=== PATIENT | female | born 1945 | race Caucasian/White ===

== ENCOUNTER → 2017-10-19 11:27 | Outpatient (CLI) | payer MEDICARE, BC, SELFPAY ==
[2017-10-19 13:14] LABS: TSH (W/Ref FT4) 3.16 uIU/mL (0.358-3.74)
== END ==
DX: E03.9 Hypothyroidism, unspecified (principal)
CPT/HCPCS: 36415; 84443

== ENCOUNTER 2018-01-25 11:24 | Outpatient (CLI) | payer MEDICARE, BC, SELFPAY ==
[2018-01-25 13:24] LABS: TSH (W/Ref FT4) 2.11 uIU/mL (0.358-3.74)
== END 2018-01-25 11:44 ==
DX: R00.2 Palpitations (principal); R53.83 Other fatigue
CPT/HCPCS: 36415; 84443

== ENCOUNTER 2018-06-28 00:47 | Outpatient (CLI) | payer MEDICARE, BC, SELFPAY ==
--- NOTE | 2018-06-28 08:55 | DI.MAMMO_ITS ---
SYMPTOM/DIAGNOSIS: SCREENING, Z12.31 MAMMOGRAMS: Mammograms were interpreted according to the usual protocol including computer analysis with CAD system, tomosynthesis and C view imaging. The breasts are heterogeneously dense. No dominant mass or clumped microcalcification is identified in either breast. The current examination is compared with previous examinations including 06/2017 and there has been no gross interval change in appearance in comparison with the previous studies. CONCLUSION: No specific evidence of malignancy at this time. Routine screening examinations are suggested at yearly intervals due to the family history of breast carcinoma. Category 1. Breast density, Category C. MQSA ASSESSMENT OF FINDINGS: Negative. Category 1. Patient will receive a letter notifying them of these results. Bi-RADS category C. The breasts are heterogeneously dense, which may obscure small masses.
== END 2018-06-28 01:07 ==
DX: Z12.31 Encounter for screening mammogram for malignant neoplasm of breast (principal); Z80.3 Family history of malignant neoplasm of breast
CPT/HCPCS: 77063; 77067

== ENCOUNTER 2018-08-31 07:46 | Outpatient (CLI) | payer MEDICARE, BC, SELFPAY ==
[2018-08-31 11:29] LABS: ALT 22 U/L (12-78); AST 16 U/L (15-37); Albumin 3.5 g/dL (3.4-5.0); Alkaline Phosphatase 60 U/L (46-116); Anion Gap 9.5 mmol/L (3-11); BUN 20 mg/dL (7-18); Bilirubin, Total 0.3 mg/dL (0.2-1.0); CO2 28.5 mmol/L (21.0-32.0); CREATININE 0.69 mg/dL (0.55-1.02); Calcium 8.5 mg/dL (8.5-10.1); Calculated LDL 162 mg/dL; Chloride 103 mmol/L (98-107); Cholesterol 247 mg/dL (50-200); Glucose 89 mg/dL (70-100); HDL Cholesterol 77 mg/dL (40-60); Potassium 4.4 mmol/L (3.5-5.1); Sodium 141 mmol/L (136-145); TSH (W/Ref FT4) 2.03 uIU/mL (0.358-3.74); Total Protein 6.3 g/dL (6.4-8.2); Triglyceride 42 mg/dL (30-150)
== END 2018-08-31 08:06 ==
DX: E03.9 Hypothyroidism, unspecified (principal); F32.9 Major depressive disorder, single episode, unspecified; F41.9 Anxiety disorder, unspecified; I10 Essential (primary) hypertension; M25.50 Pain in unspecified joint
CPT/HCPCS: 36415; 80053; 80061; 83721; 84443

== ENCOUNTER 2019-08-14 03:52 | Outpatient (CLI) | payer MEDICARE, BC, SELFPAY ==
[2019-08-14 10:26] LABS: ALT 25 U/L (14-59); AST 16 U/L (15-37); Albumin 4.1 g/dL (3.4-5.0); Alkaline Phosphatase 56 U/L (46-116); Anion Gap 4.8 mmol/L (3-11); BUN 19 mg/dL (7-18); Bilirubin, Total 0.3 mg/dL (0.2-1.0); CO2 32.2 mmol/L (21.0-32.0); CREATININE 0.84 mg/dL (0.55-1.02); Calcium 8.9 mg/dL (8.5-10.1); Chloride 101 mmol/L (98-107); Glucose 88 mg/dL (74-106); Potassium 4.8 mmol/L (3.5-5.1); Sodium 138 mmol/L (136-145); TSH (W/Ref FT4) 4.05 uIU/mL (0.36-3.74); Total Protein 6.8 g/dL (6.4-8.2)
[2019-08-14 10:50] LABS: FREE T4 0.93 ng/dL (0.76-1.46)
[2019-08-14 12:00] LABS: Calculated LDL 178 mg/dL (<100); Cholesterol 279 mg/dL (<200); HDL Cholesterol 90 mg/dL (40-60); Triglyceride 59 mg/dL (<150)
== END 2019-08-14 04:12 ==
DX: I10 Essential (primary) hypertension (principal); E03.9 Hypothyroidism, unspecified; F32.9 Major depressive disorder, single episode, unspecified; F41.9 Anxiety disorder, unspecified
CPT/HCPCS: 36415; 80053; 80061; 84439; 84443

== ENCOUNTER 2019-12-03 01:27 | Outpatient (CLI) | payer MEDICARE, BC, SELFPAY ==
[2019-12-03 13:42] LABS: TSH (W/Ref FT4) 2.15 uIU/mL (0.36-3.74)
== END 2019-12-03 01:47 ==
DX: E03.9 Hypothyroidism, unspecified (principal)
CPT/HCPCS: 36415; 84443

== ENCOUNTER 2020-06-23 03:31 | Outpatient (CLI) | payer MEDICARE, BC, SELFPAY ==
--- NOTE | 2020-06-23 08:20 | DI.MAMMO_ITS ---
EXAM: MG MAMMO SCREENING CLINICAL HISTORY: screening,Z12.39 TECHNIQUE: Bilateral full field digital CC and MLO mammographic images were obtained with 3D tomosyn thesis and utilizing computer aided detection (CAD). COMPARISON: Available for comparison. FINDINGS: Masses/Architectural Distortion: None seen. Microcalcifications: No suspicious pleomorphic-type are seen. Skin Thickening/Nipple Retraction: None. IMPRESSION: 1. No significant interval change with no specific features of malignancy noted. 2. Unless there is more urgent need, screening mammography is recommended, as per [employer] guidelines. BI-RADS Category 1 - Negative Breast Density - Category C - Heterogeneously dense Breast density category C or D implies that the patient has dense breast tissue. Dense breast tissue is very common and is not abnormal but dense breast tissue can make it harder to find cancer on a ma mmogram. Also, dense breast tissue may increase their breast cancer risk. This information about the result of the mammogram report was provided to the patient to raise their awareness. Use this report when you speak with the patient about their risks for breast cancer, which includes their family hist ory. At that time, you may recommend for more screening tests (Ultrasound or MRI) as they might be us eful based on their risk. A negative radiographic report should not delay biopsy if a dominant or clinically suspicious mass is present. Up to ten percent of cancers are not identified on mammography. A negative report may reinforce clinical impression. Adenosis and dense breasts may obscure an underlying neoplasm. False positive reports average 6 to 10%. Patient will receive a letter notifying them of these results.
[2020-06-23 09:18] LABS: Calculated LDL 165 mg/dL (<100); Cholesterol 270 mg/dL (<200); HDL Cholesterol 91 mg/dL (40-60); TSH 4.38 uIU/mL (0.36-3.74); Triglyceride 74 mg/dL (<150)
[2020-06-23 09:40] LABS: FREE T4 0.98 ng/dL (0.76-1.46)
== END 2020-06-23 03:32 | disposition home or self-care (01) ==
PROVIDERS: Visit Provider Physician Assistant
DX: Z12.31 Encounter for screening mammogram for malignant neoplasm of breast (principal); I10 Essential (primary) hypertension; F41.9 Anxiety disorder, unspecified; F32.9 Major depressive disorder, single episode, unspecified
CPT/HCPCS: 36415; 77063; 77067; 80061; 84439; 84443

== ENCOUNTER 2020-12-02 02:57 | Outpatient (CLI) | payer MEDICARE, BC, SELFPAY ==
[2020-12-02 11:37] LABS: TSH (W/Ref FT4) 2.15 uIU/mL (0.36-3.74)
== END 2020-12-02 02:58 | disposition home or self-care (01) ==
LOC: LBO 02:57
DX: E03.9 Hypothyroidism, unspecified; G47.00 Insomnia, unspecified
CPT/HCPCS: 36415; 84443

== ENCOUNTER 2020-12-08 01:21 | Outpatient (CLI) | payer MEDICARE, BC, SELFPAY ==
--- NOTE | 2020-12-08 07:30 | DI.RAD_ITS ---
Exam(s) XR HIP PELVIS ADULT BL EXAM: XR HIP PELVIS ADULT BL CLINICAL HISTORY: osteoarthritis with groin pain, not improv. w/ PT,r10.31,r10.32. TECHNIQUE: 2D digital imaging was performed. COMPARISON: No exams were available for comparison FINDINGS: No evidence of pelvic nor hip fractures. No degenerative changes evident in the hips and sacroiliac joints nor in the symphysis pubis. Bone density is normal. No osseous lesions. No evidence of oste onecrosis. IMPRESSION: No significant radiographic findings in the bones of the pelvis and hips. No obvious degenerative ch anges in either hip. DATA REPOSITORY: RADIATION DOSE DELIVERED:
== END 2020-12-08 01:41 ==
DX: R10.31 Right lower quadrant pain (principal); R10.32 Left lower quadrant pain
CPT/HCPCS: 73521

== ENCOUNTER 2021-07-01 03:55 | Outpatient (CLI) | payer MEDICARE, BC, SELFPAY ==
[2021-07-01 12:51] LABS: ALT 24 U/L (14-59); AST 16 U/L (15-37); Albumin 4.1 g/dL (3.4-5.0); Alkaline Phosphatase 57 U/L (46-116); Anion Gap 6.6 mmol/L (3-11); BUN 18 mg/dL (7-18); Bilirubin, Total 0.4 mg/dL (0.2-1.0); CO2 30.4 mmol/L (21.0-32.0); CREATININE 0.8 mg/dL (0.55-1.02); Calcium 8.8 mg/dL (8.5-10.1); Calculated LDL 179 mg/dL (<100); Chloride 99 mmol/L (98-107); Cholesterol 279 mg/dL (<200); Glucose 85 mg/dL (74-106); HDL Cholesterol 86 mg/dL (40-60); Sodium 136 mmol/L (136-145); TSH (W/Ref FT4) 3.29 uIU/mL (0.36-3.74); Total Protein 6.6 g/dL (6.4-8.2); Triglyceride 70 mg/dL (<150)
== END 2021-07-01 03:56 | disposition home or self-care (01) ==
LOC: LOS 03:56
DX: I10 Essential (primary) hypertension (principal); E03.9 Hypothyroidism, unspecified; E78.5 Hyperlipidemia, unspecified
CPT/HCPCS: 36415; 80053; 80061; 84443

== ENCOUNTER 2022-06-13 01:06 | Outpatient (CLI) | payer MEDICARE, BC, SELFPAY ==
--- NOTE | 2022-06-13 06:45 | DI.RAD_ITS ---
Exam(s) XR CERVICAL SPINE COMP 4-5V EXAM: XR CERVICAL SPINE COMP 4-5V CLINICAL HISTORY: persistent pain with PT,RT NECK PAIN,M54.2. TECHNIQUE: 2D digital imaging was performed. COMPARISON: No exams were available for comparison FINDINGS: Five views: No evidence of acute fracture, listhesis, nor offset of the spinal laminar line. There is some disc space narrowing at C5-6 as well as some facet arthropathy at this level. Also some facet joint degen erative changes higher up in the cervical spine. On the oblique views there are no prominent Luschka joint osteophytes. There are no cervical ribs. No osseous lesions evident. IMPRESSION: Evidence of degenerative disc disease C5-6 level. DATA REPOSITORY: RADIATION DOSE DELIVERED:
== END 2022-06-13 01:26 ==
PROVIDERS: PCP Nurse Practitioner Family; Visit Provider Nurse Practitioner Family
DX: M54.2 Cervicalgia (principal)
CPT/HCPCS: 72050

== ENCOUNTER 2022-06-13 02:23 | Outpatient (CLI) | payer MEDICARE, BC, SELFPAY ==
[2022-06-13 09:04] LABS: ALT 26 U/L (14-59); AST 16 U/L (15-37); Albumin 3.7 g/dL (3.4-5.0); Alkaline Phosphatase 58 U/L (46-116); Anion Gap 4.9 mmol/L (3-11); BUN 22 mg/dL (7-18); Bilirubin, Total 0.3 mg/dL (0.2-1.0); CO2 31.1 mmol/L (21.0-32.0); CREATININE 0.8 mg/dL (0.55-1.02); Calcium 8.9 mg/dL (8.5-10.1); Calculated LDL 173 mg/dL (<100); Chloride 101 mmol/L (98-107); Cholesterol 265 mg/dL (<200); Estimated GFR 77.27 (mL/min/1.73m2); Glucose 92 mg/dL (74-106); HDL Cholesterol 85 mg/dL (40-60); Potassium 4.4 mmol/L (3.5-5.1); Sodium 137 mmol/L (136-145); TSH (W/Ref FT4) 2.39 uIU/mL (0.36-3.74); Triglyceride 39 mg/dL (<150)
== END 2022-06-13 02:24 | disposition home or self-care (01) ==
LOC: LBO 02:23
PROVIDERS: PCP Nurse Practitioner Family; Visit Provider Nurse Practitioner Family
DX: E03.9 Hypothyroidism, unspecified (principal); E78.5 Hyperlipidemia, unspecified
CPT/HCPCS: 36415; 80053; 80061; 72050; 84443

== ENCOUNTER 2022-07-01 19:11 | Emergency (ER) | payer MEDICARE, BC, SELFPAY ==
--- NOTE | 2022-07-01 19:00 | RT.EKG_ITS ---
APPROVED REPORT Exam: Resting ECG Reason for Exam: dizziness Patient Location: E HR:67 bpm ECG Measurements Heart Rate 67 AXIS WV 164 P 80 QRSd 89 QRS 75 QT 399 T 20 QTc 398 Conclusion Sinus rhythm...normal P axis, V-rate 60- 99 Atrial premature complexes in couplets...pair SV complexes w/ short R-R Probable left atrial enlargement...P >50mS, <-0.10mV V1 Minimal ST depression, diffuse leads...ST <-0.03mV, ant/lat/inf I have reviewed and interpreted ECG and agree with software generated interpretation.
[2022-07-01 19:17] VITALS: BP 208/93; PULSE 72; RESP 16; TEMP 36.6; O2SAT 98
--- NOTE | 2022-07-01 19:30 | DI.CT_ITS ---
Exam(s) CT HEAD WO EXAM: CT HEAD WO CLINICAL HISTORY: Dizziness. TECHNIQUE: Imaging Protocol: Axial computed tomography images with coronal and sagittal reformatted images were created and reviewed COMPARISON: No exams were available for comparison FINDINGS: There are no skull fractures. There is no fluid in the visualized paranasal sinuses. There is no evidence of intracranial hemorrhage, mass effect, or shift of midline structures. There are no extra-axial fluid collections. The ventricles are not enlarged or shifted and there is no blo od within the ventricular system nor within the basal cisterns. IMPRESSION: No acute intracranial findings on this noninfused CT scan of the brain. RADIATION DOSE DELIVERED: 658.02mGy.cm Total DLP DATA REPOSITORY: All CT scans at this facility are submitted to the National Radiology Data Registry (NRDR) Dose Index Registry (DIR) with the [employer] (ACR). RADIATION OPTIMIZATION: All CT scans at this facility use at least one of these dose optimization te chniques: automated exposure control; mA and/or kV adjustment per patient size (includes targeted exa ms where dose is matched to clinical indication); or iterative reconstruction.
--- NOTE | 2022-07-01 19:47 | ED.GENADUL_ITS ---
Discharge Plan Disposition Patient Disposition: Home Condition: Stable Discharge Details Clinical Impression: Hypertension, Dizziness Primary Care Provider: Manohar Sy ED Provider: Paultete Ritter Home Meds and New Rx's Prescriptions: New lisinopril 10 mg tablet 10 mg PO DAILY Qty: 30 0RF Rx Instructions: Take one tablet by mouth daily. meclizine 25 mg tablet 25 mg PO DAILY PRN (Reason: dizziness) Qty: 10 0RF Rx Instructions: Take 1 tablet daily as needed for dizziness No Action naproxen sodium [Aleve] 220 mg capsule 220 mg PO BID PRN magnesium 250 mg tablet 250 mg PO DAILY rosuvastatin 5 mg tablet 5 mg PO DAILY Qty: 90 0RF triamcinolone acetonide 0.025 % cream 1 applic Topical DAILY PRN (Reason: dermatitis) Qty: 15 1RF Rx Instructions: Apply to lesion on face daily, thin layer. Discontinue after 2 weeks of use. cholecalciferol (vitamin D3) 1,000 UNIT tablet 1,000 unit PO DAILY calcium carbonate [Calcium 500] 500 MG tablet 500 mg PO DAILY lorazepam 0.5 mg tablet 0.5 mg PO DAILY PRN (Reason: anxiety) Qty: 10 0RF levothyroxine 25 mcg tablet 12.5 mcg PO DAILY Qty: 45 2RF Rx Instructions: Take 12.5mg (1/2 tab) every other day for a total of 62.5mg/day levothyroxine 50 mcg tablet 50 mcg PO DAILY Qty: 90 3RF sertraline 100 mg tablet 100 mg PO DAILY Qty: 90 3RF Discharge Instructions Instructions: Hypertension (ED), Dizziness (ED) Additional Instructions: At this time cardiac work-up is within normal limits, your blood pressure has remained high throughout your stay. No evidence of heart problems. CT of your head is within normal limits and chest x-ray within normal limits as well. Please take the lisinopril blood pressure medication daily as directed. Continue to monitor your blood pressure. Take the meclizine dizziness medication as needed. Follow up with primary care provider in 3-5 days. Return to ED sooner if any worsening or concerns. Increase oral fluids. Referrals: Manohar Sy, V[employer]ATIONAL ED INSTRUCTOR [Primary Care Provider] - 3 days Medical Decision Making 76-year-old female presents to the ER with a chief complaint of dizziness and hypertension. Patient was seen by her PCP recently and noted to have high blood pressure she requested to wait on starting medication. She was also recently placed on rosuvastatin on Monday. She also reports loose stools for the last 3 days. She describes bending over with increased dizziness and lightheadedness. Denies any chest pain shortness of breath or headache. She does get dizzy upon standing. Past medical history includes vertigo, back pain and arthralgia. She is alert and oriented x4 no focal neurodeficits noted on exam. EKG, CBC CMP, troponin TSH chest pain chest x-ray and head CT ordered. I did discuss possible blood pressure medications with patient who states she is not everted to starting them if needed. CBC shows no leukocytosis, CMP shows sodium 134, BUN 21 creatinine 0.7 glucose 111 TSH is elevated at 6.13, urinalysis is within normal limits. On patient reevaluation she reports that upon transferring from the stretcher to CT she did get dizzy and felt off balance. Order meclizine p.o. and lisinopril 10 mg. Patient received a liter of normal saline, blood pressure improved 147/61 prior to discharge. This text was generated using [employer] dictation system, please disregard any oddities of phrase or misspellings. Lab Data Lab results reviewed: Yes I reviewed the patient's lab results. Labs: Laboratory Tests Range/Units 07/01/22 07/01/22 07/01/22 19:55 19:55 19:55 WBC (4.4-10.8) 10^3/uL 6.22 RBC (3.93-5.22) 10^6/uL 4.20 Hgb (11.2-15.7) g/dL 13.2 Hct (36.0-46.0) % 39.0 MCV (80-95) fL 93 MCH (27.0-33.0) pg 31.4 MCHC (32.0-36.0) % 33.8 RDW (11.7-14.6) % 12.7 Plt Count (130-400) 10^3/uL 223 MPV (8.0-11.0) fL 10.5 Immature Gran % 0.2 Neutrophils % 64.0 Lymphocytes % 21.5 Monocytes % 10.9 Eosinophils % 2.6 Basophils % 0.8 Nucleated RBC % (0.0-0.3) % 0.0 Absolute Neutrophils (1.2-6.7) 10^3/uL 3.98 Absolute Lymphocytes (1.2-3.4) 10^3/uL 1.34 Absolute Monocytes (0.1-0.8) 10^3/uL 0.68 Absolute Eosinophils (0.0-0.7) 10^3/uL 0.16 Absolute Basophils (0.0-0.2) 10^3/uL 0.05 Sodium (136-145) mmol/L 134 L Potassium (3.5-5.1) mmol/L 4.4 Chloride (98-107) mmol/L 99 Carbon Dioxide (21.0-32.0) mmol/L 29.6 Anion Gap (3-11) mmol/L 5.4 BUN (7-18) mg/dL 21 H Creatinine (0.55-1.02) mg/dL 0.7 Est GFR (CKD-EPI 2020) (mL/min/1.73m2) 90.70 Glucose (74-106) mg/dL 111 H Calcium (8.5-10.1) mg/dL 9.4 Magnesium (1.8-2.4) mg/dL 1.9 Total Bilirubin (0.2-1.0) mg/dL 0.3 AST (15-37) U/L 18 ALT (14-59) U/L 30 Alkaline Phosphatase (46-116) U/L 69 Troponin I (<or=60) ng/L < 50 Total Protein (6.4-8.2) g/dL 7.5 Albumin (3.4-5.0) g/dL 4.1 TSH (0.36-3.74) uIU/mL 6.13 H Thyroxine (T4) (4.7-13.3) ug/dL 7.5 Urine Color (Yellow) Urine Clarity (Clear) Urine pH (5-8) Ur Specific [place] (1.005-1.025) Urine Protein (Negative) mg/dL Urine Ketones (Negative) mg/dL Urine Blood (Negative) Urine Nitrite (Negative) Urine Bilirubin (Negative) Urine Urobilinogen (Up to 0.2) mg/dL Ur Leukocyte Esterase (Negative) Urine Glucose (Negative) mg/dL Range/Units 07/01/22 20:00 WBC (4.4-10.8) 10^3/uL RBC (3.93-5.22) 10^6/uL Hgb (11.2-15.7) g/dL Hct (36.0-46.0) % MCV (80-95) fL MCH (27.0-33.0) pg MCHC (32.0-36.0) % RDW (11.7-14.6) % Plt Count (130-400) 10^3/uL MPV (8.0-11.0) fL Immature Gran % Neutrophils % Lymphocytes % Monocytes % Eosinophils % Basophils % Nucleated RBC % (0.0-0.3) % Absolute Neutrophils (1.2-6.7) 10^3/uL Absolute Lymphocytes (1.2-3.4) 10^3/uL Absolute Monocytes (0.1-0.8) 10^3/uL Absolute Eosinophils (0.0-0.7) 10^3/uL Absolute Basophils (0.0-0.2) 10^3/uL Sodium (136-145) mmol/L Potassium (3.5-5.1) mmol/L Chloride (98-107) mmol/L Carbon Dioxide (21.0-32.0) mmol/L Anion Gap (3-11) mmol/L BUN (7-18) mg/dL Creatinine (0.55-1.02) mg/dL Est GFR (CKD-EPI 2020) (mL/min/1.73m2) Glucose (74-106) mg/dL Calcium (8.5-10.1) mg/dL Magnesium (1.8-2.4) mg/dL Total Bilirubin (0.2-1.0) mg/dL AST (15-37) U/L ALT (14-59) U/L Alkaline Phosphatase (46-116) U/L Troponin I (<or=60) ng/L Total Protein (6.4-8.2) g/dL Albumin (3.4-5.0) g/dL TSH (0.36-3.74) uIU/mL Thyroxine (T4) (4.7-13.3) ug/dL Urine Color (Yellow) Yellow Urine Clarity (Clear) Clear Urine pH (5-8) 7.0 Ur Specific [place] (1.005-1.025) 1.015 Urine Protein (Negative) mg/dL Negative Urine Ketones (Negative) mg/dL Negative Urine Blood (Negative) Negative Urine Nitrite (Negative) Negative Urine Bilirubin (Negative) Negative Urine Urobilinogen (Up to 0.2) mg/dL 0.2 Ur Leukocyte Esterase (Negative) Negative Urine Glucose (Negative) mg/dL Negative HPI General Mode of arrival: ambulatory . Date/Time Provider Initiated Documentation: 07/01/22 19:31 . Limitations to Documentation: no limitations . Information obtained by: patient, RN notes reviewed and old records reviewed . HPI Narrative: 76-year-old female presents to the ER with a chief complaint of dizziness and hypertension. Patient was seen by her PCP recently and noted to have high blood pressure she requested to wait on starting medication. She was also recently placed on rosuvastatin on Monday. She also reports loose stools for the last 3 days. She describes bending over with increased dizziness and lightheadedness. Denies any chest pain shortness of breath or headache. She does get dizzy upon standing. Past medical history includes vertigo, back pain and arthralgia. She is alert and oriented x4 no focal neurodeficits noted on exam. She is hypertensive with a blood pressure of 195/96. Past medical history includes hypothyroidism anxiety depression, hyperlipidemia and GERD Related Data Home Medications Medication Instructions Recorded Confirmed cholecalciferol (vitamin D3) 25 1,000 unit PO DAILY 11/02/12 07/01/22 mcg (1,000 unit) tablet calcium carbonate 500 mg calcium 500 mg PO DAILY 08/19/15 07/01/22 (1,250 mg) tablet (Calcium 500) triamcinolone acetonide 0.025 % 1 applic topical DAILY PRN 10/05/20 07/01/22 topical cream dermatitis #15 grams lorazepam 0.5 mg tablet 0.5 mg PO DAILY PRN anxiety #10 11/20/20 07/01/22 tabs magnesium 250 mg tablet 250 mg PO DAILY 07/10/21 07/01/22 naproxen sodium 220 mg capsule 220 mg PO BID PRN 07/10/21 07/01/22 (Aleve) levothyroxine 25 mcg tablet 12.5 mcg PO DAILY hypothyroidism 01/05/22 07/01/22 #45 tabs levothyroxine 50 mcg tablet 50 mcg PO DAILY #90 tab-caps 02/23/22 07/01/22 sertraline 100 mg tablet 100 mg PO DAILY #90 tab-caps 02/23/22 07/01/22 rosuvastatin 5 mg tablet 5 mg PO DAILY #90 tabs 06/27/22 07/01/22 lisinopril 10 mg tablet 10 mg PO DAILY #30 tabs 07/01/22 meclizine 25 mg tablet 25 mg PO DAILY PRN dizziness #10 07/01/22 tabs Previous Rx's Medication Instructions Recorded triamcinolone acetonide 0.025 % 1 applic topical DAILY PRN 10/05/20 topical cream dermatitis #15 grams lorazepam 0.5 mg tablet 0.5 mg PO DAILY PRN anxiety #10 11/20/20 tabs levothyroxine 25 mcg tablet 12.5 mcg PO DAILY hypothyroidism 01/05/22 #45 tabs levothyroxine 50 mcg tablet 50 mcg PO DAILY #90 tab-caps 02/23/22 sertraline 100 mg tablet 100 mg PO DAILY #90 tab-caps 02/23/22 rosuvastatin 5 mg tablet 5 mg PO DAILY #90 tabs 06/27/22 lisinopril 10 mg tablet 10 mg PO DAILY #30 tabs 07/01/22 meclizine 25 mg tablet 25 mg PO DAILY PRN dizziness #10 07/01/22 tabs Allergies Allergy/AdvReac Type Severity Reaction Status Date / Time nickel Allergy Severe RASH Verified 07/01/22 19:23 alendronate sodium AdvReac Mild epigastric Verified 07/01/22 19:23 [From Fosamax] pain General Stated Complaint: Dizzy/Sync DENAE: 3 Review of Systems All systems reviewed & are unremarkable except as noted in HPI and below ENT Ears, Nose, Mouth, and Throat: Reports dizziness Cardiovascular Cardiovascular: Denies chest pain, Reports lightheadedness, Denies dyspnea, Denies dyspnea on exertion, Denies orthopnea and Reports other (Hypertension) Respiratory Respiratory: Denies dyspnea and Denies dyspnea on exertion Gastrointestinal Gastrointestinal: Denies abdominal pain, Reports loose stools, Denies nausea and Denies vomiting Neurologic Neurologic: Reports as per HPI and Reports dizziness PFSH All Active Problems (Updated 07/01/22 @ 21:51 by Paulette Ritter NP) Hypertension (Chronic) Dizziness (Acute) Skin lesion (Acute) Neck pain on right side (Acute) GERD without esophagitis (Chronic) Hyperlipidemia (Chronic) ACC/AHA Risk Christopher.on 2020 Lipids = 17.4% Advanced directives, counseling/discussion (Acute) Insomnia, unspecified (Chronic 07/07/15) Seasonal allergies (Chronic 10/19/17) Rosacea (Chronic) Palpitations (Chronic 02/23/15) Osteoporosis (Chronic) 2009 [facility] [place] [facility] T- 3.2, 02/08 DEXA stable at T -3.1 2017 [facility] Spine=T -2.2 (no chg.), Hip= T -2.8 (slight improvement) NOT on alendronate Hypothyroidism (Chronic 11/02/12) Anxiety and depression (Chronic 06/17/14) Medical History Arthralgia of temporomandibular joint, unspecified side (06/01/16) bilateral thumbs and feet Back pain with left-sided radiculopathy (12/22/16) Balance problem (10/19/17) COVID-19 (~11/26/21) Family hx-breast malignancy mother Knee pain, bilateral (04/24/14) Left groin pain 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 No problems noted. Grandfather Diabetes Heart disease Stroke Grandmother Essential hypertension Heart disease Stroke Grandmother Essential hypertension Stroke FAMILY HISTORY Osteoporosis Peripheral vascular disease Son Essential hypertension Daughter No problems noted. Other Family hx-breast malignancy Social History Smoking/Tobacco Use Status: Never Smoking risk assessment performed?: Yes Alcohol Intake: current Alcohol Intake frequency: holidays/special occasions only Drug use: Never Substance use type: does not use Caregiver/Support person: No Household members: spouse Communication Needs: None Pets and animals: No Sexually active: Yes What is your relationship status?: How often do you talk on the phone with friends or family?: three or more times per week How often do you get together with friends or relatives?: three or more times per week How often do you attend methodist or alevism services?: 4 or more times per year Do you belong to any clubs or organized social groups?: yes Panel score (0-1 are the most socially isolated patients): 4 What type of physical activity do you participate in: walking, other Details: Dance and decline to answer Duration: 60-90 minutes/day Frequency: 5-6 times per week Allyson/Gnosticism: Restoration Special allyson needs: No Seatbelt use: always Drive intox 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 Appears stated age. Normal body habitus. Head: Normocephalic, no trauma. Eyes: Pupils PERRL, Red reflex noted, EOM's intact. Eyelids symmetrical without lesions, discharge, or swelling. ENT: Bilateral TM's WNL, External ear normal to inspection, no mastoid TTP, swelling, or erythema, Nasal turbinates WNL, no nasal discharge. Normal dentition, Posterior pharynx WNL, no exudate. Chest: RRR, Normal S1, S2, distal pulses intact. Resp: Lungs clear to auscultation bilaterally, no wheezes, rales, or rhonchi. Abdomen: Soft, non-distended, Normoactive bowel sounds all 4 quads. Musculoskeletal: Normal gait, 5/5 strength to all four extremities. Skin: No suspicious rashes or lesions. Capillary refill less than 2 sec. Neurologic: Cranial nerves II-XII intact. Alert and oriented x 3. Motor: No deficits noted. Sensory: Intact bilaterally all 4 extremities. Reflexes: DTR's intact bilaterally.. Hematologic/Lymphatic: No ecchymosis, no lymphadenopathy. Course Vital Signs Vital signs: Vital Signs Temperature 36.6 C 07/01/22 19:17 Pulse 72 07/01/22 19:17 Respiratory Rate 16 07/01/22 19:17 Blood Pressure 208/93 H 07/01/22 19:17 Pulse Oximetry 98 07/01/22 19:17 Temperature 36.6 C 07/01/22 19:17 Temperature Source Oral 07/01/22 19:17 Pulse 72 07/01/22 19:17 Respiratory Rate 16 07/01/22 19:17 Respiratory Effort Normal 07/01/22 19:17 Blood Pressure 208/93 H 07/01/22 19:17 Blood Pressure Position Sitting 07/01/22 19:17 Pulse Oximetry 98 07/01/22 19:17 Oxygen Delivery Method Room Air 07/01/22 19:17 Oxygen Flow Rate 0 07/01/22 19:17 Pain Level 0 07/01/22 19:17
--- NOTE | 2022-07-01 19:47 | DI.RAD_ITS ---
Exam(s) XR CHEST 2V PA LATERAL EXAM: XR CHEST 2V PA LATERAL CLINICAL HISTORY: Dizziness, Hypertension. TECHNIQUE: 2D digital imaging was performed. COMPARISON: No exams were available for comparison FINDINGS: 2 views: Heart size is normal. The mediastinum is not widened. Hyperinflation but no infiltrates nor pleural effusions. No pneumothorax. No pulmonary edema. IMPRESSION: No acute pulmonary findings.Hyperinflation noted. DATA REPOSITORY: RADIATION DOSE DELIVERED:
[2022-07-01 20:02] LABS: Abs Immature Grans 0.01 10^3/uL (0.0-0.06); Absolute Basophil Count 0.05 10^3/uL (0.0-0.2); Absolute Eosinophil Count 0.16 10^3/uL (0.0-0.7); Absolute Lymphocyte Count 1.34 10^3/uL (1.2-3.4); Absolute Monocyte Count 0.68 10^3/uL (0.1-0.8); Absolute Neutrophil Count 3.98 10^3/uL (1.2-6.7); Basophils % 0.8; Eosinophils % 2.6; HGB 13.2 g/dL (11.2-15.7); Immature Grans % 0.2; Lymphocytes % 21.5; MCH 31.4 pg (27.0-33.0); MCHC 33.8 % (32.0-36.0); MCV 93 fL (80-95); MPV 10.5 fL (8.0-11.0); Monocytes % 10.9; Platelet Count 223 10^3/uL (130-400); RDW 12.7 % (11.7-14.6); RDW-SD 43.2 fL; WBC 6.22 10^3/uL (4.4-10.8)
[2022-07-01 20:25] LABS: Bilirubin Negative (Negative); Blood Negative (Negative); Clarity Clear (Clear); Glucose Negative (Negative); Ketones Negative (Negative); Leukocyte Esterase Negative (Negative); Nitrite Negative (Negative); Specific Gravity 1.015 (1.005-1.025); Urobilinogen 0.2 mg/dL (Up to 0.2)
[2022-07-01 20:29] LABS: ALT 30 U/L (14-59); AST 18 U/L (15-37); Albumin 4.1 g/dL (3.4-5.0); Alkaline Phosphatase 69 U/L (46-116); Anion Gap 5.4 mmol/L (3-11); BUN 21 mg/dL (7-18); Bilirubin, Total 0.3 mg/dL (0.2-1.0); CO2 29.6 mmol/L (21.0-32.0); CREATININE 0.7 mg/dL (0.55-1.02); Calcium 9.4 mg/dL (8.5-10.1); Chloride 99 mmol/L (98-107); Glucose 111 mg/dL (74-106); Magnesium 1.9 mg/dL (1.8-2.4); Potassium 4.4 mmol/L (3.5-5.1); Sodium 134 mmol/L (136-145); TSH 6.13 uIU/mL (0.36-3.74); Total Protein 7.5 g/dL (6.4-8.2); Troponin I < 50 ng/L (<or=60)
[2022-07-01 21:01] LABS: T4 7.5 ug/dL (4.7-13.3)
--- NOTE | 2022-07-01 21:18 | DI.VRAD_ITS ---
PROCEDURE INFORMATION: Exam: CT Head Without Contrast Exam date and time: 07/01/2022 8:55 PM Age: 76 years old Clinical indication: Dizziness TECHNIQUE: Imaging protocol: Computed tomography of the head without contrast. COMPARISON: CR XR CERVICAL SPINE COMP 4-5V 06/13/2022 8:33 AM FINDINGS: Brain: Age-appropriate mild atrophy. No hemorrhage. Unremarkable white matter. No mass effect. Cerebral ventricles: No ventriculomegaly. Paranasal sinuses: Visualized sinuses are unremarkable. No fluid levels. Mastoid air cells: Visualized mastoid air cells are well aerated. Bones/joints: Unremarkable. No acute fracture. Soft tissues: Unremarkable. IMPRESSION: 1. No acute intracranial abnormality. 2. Age-appropriate mild atrophy Dictated and Authenticated by: Jermain Mcdonough MD. Ordering:ARMIN Caldwell MD
--- NOTE | 2022-07-01 21:19 | DI.VRAD_ITS ---
PROCEDURE INFORMATION: Exam: XR Chest Exam date and time: 07/01/2022 9:00 PM Age: 76 years old Clinical indication: Other: Dizziness, hypertension TECHNIQUE: Imaging protocol: Radiologic exam of the chest. Views: 2 views. COMPARISON: CR XR CERVICAL SPINE COMP 4-5V 06/13/2022 8:33 AM FINDINGS: Lungs: Bilateral moderate to severe hyperinflation suggesting underlying emphysema/COPD. No acute infiltrates or edema. Pleural spaces: No pleural effusion. Heart/Mediastinum: Normal heart size. Bones/joints: Degenerative thoracic spine and midthoracic [id number] levoscoliosis. IMPRESSION: 1. Hyperinflation suggesting underlying emphysema/COPD. 2. No acute infiltrates or edema. 3. No acute pleural disease. Dictated and Authenticated by: Jermain Mcdonouhg MD. Ordering:ARMIN Caldwell MD
[2022-07-01] MEDS: Meclizine 25 MG TAB PO (22:26)
[2022-07-01] MEDS: Normal Saline 1,000 ML 1000 ML IV (22:27)
[2022-07-01] MEDS: Lisinopril 10 MG TAB PO (22:27)
[2022-07-01 23:42] VITALS: BP 147/61; PULSE 60; RESP 14; O2SAT 97
== END 2022-07-01 23:54 | disposition home or self-care (01) ==
PROVIDERS: Emergency Provider Registered Nurse Emergency; PCP Nurse Practitioner Family
DX: I10 Essential (primary) hypertension (principal); R42 Dizziness and giddiness
CPT/HCPCS: 80053; 93005; 96360; 99285; 70450; 71046; 81003; 83735; 84436; 84443; 84484; 85025; 93010; 99284

== ENCOUNTER 2022-07-26 03:53 | Outpatient (CLI) | payer MEDICARE, BC, SELFPAY ==
[2022-07-26 12:42] LABS: Anion Gap 5.6 mmol/L (3-11); BUN 16 mg/dL (7-18); CO2 29.4 mmol/L (21.0-32.0); CREATININE 0.8 mg/dL (0.55-1.02); Calcium 9.1 mg/dL (8.5-10.1); Chloride 100 mmol/L (98-107); Estimated GFR 77.27 (mL/min/1.73m2); Glucose 86 mg/dL (74-106); Potassium 4.1 mmol/L (3.5-5.1); Sodium 135 mmol/L (136-145); TSH (W/Ref FT4) 2.32 uIU/mL (0.36-3.74)
[2022-08-05 08:52] LABS: Creatine Kinase 97 U/L (26 - 192)
== END 2022-07-26 03:54 | disposition home or self-care (01) ==
LOC: LOS 03:53
PROVIDERS: PCP Nurse Practitioner Family; Visit Provider Nurse Practitioner Family
DX: E03.9 Hypothyroidism, unspecified (principal); I10 Essential (primary) hypertension; R25.2 Cramp and spasm
CPT/HCPCS: 36415; 80048; 82550; 82552; 84443

== ENCOUNTER 2022-07-29 01:32 | Outpatient (CLI) | payer MEDICARE, BC, SELFPAY ==
[2022-07-29] MEDS: Albuterol HFA 18 GM 200 PUFF INH IH (12:14)
[2022-07-29] MEDS: Inhaler, Assist Device 1 EACH MC (12:15)
--- NOTE | 2022-07-29 15:15 | W.PFT ---
Date of service: 07/29/22 Time of Service: 10:06 Pulmonary Function Test Result Indications: Hyperinflation of lungs Interpretation Spirometry: There is no airflow limiation. The is no bronchodilator response. Lung Volumes: Normal lung volumes. Diffusion Capacity: Normal diffusion Airway Pressure: Normal airways resistance Impression Normal pulmonary function testing Clinical Correlation therefore is recommended.
== END 2022-07-29 01:33 | disposition home or self-care (01) ==
LOC: RT 01:33
PROVIDERS: PCP Nurse Practitioner Family; Visit Provider Nurse Practitioner Family
DX: J98.4 Other disorders of lung (principal)
CPT/HCPCS: 94060; 94726; 94729

== ENCOUNTER 2022-08-01 02:10 | Outpatient (CLI) | payer MEDICARE, BC, SELFPAY ==
--- NOTE | 2022-08-01 06:45 | DI.MAMMO_ITS ---
Exam(s) MAMMO SCREENING EXAM: MAMMO SCREENING CLINICAL HISTORY: screening,z12.39 TECHNIQUE: Bilateral full field digital CC and MLO mammographic images were obtained with 3D tomosyn thesis and utilizing computer aided detection (CAD). COMPARISON: Available for comparison. FINDINGS: Masses/Architectural Distortion: None seen. Microcalcifications: No suspicious pleomorphic-type are seen. Skin Thickening/Nipple Retraction: None. IMPRESSION: 1. No significant interval change with no specific features of malignancy noted. 2. Unless there is more urgent need, screening mammography is recommended, as per [employer] guidelines. BI-RADS Category 1 - Negative Breast Density - Category C - Heterogeneously dense Breast density category C or D implies that the patient has dense breast tissue. Dense breast tissue is very common and is not abnormal but dense breast tissue can make it harder to find cancer on a ma mmogram. Also, dense breast tissue may increase their breast cancer risk. This information about the result of the mammogram report was provided to the patient to raise their awareness. Use this report when you speak with the patient about their risks for breast cancer, which includes their family hist ory. At that time, you may recommend for more screening tests (Ultrasound or MRI) as they might be us eful based on their risk. A negative radiographic report should not delay biopsy if a dominant or clinically suspicious mass is present. Up to ten percent of cancers are not identified on mammography. A negative report may reinforce clinical impression. Adenosis and dense breasts may obscure an underlying neoplasm. False positive reports average 6 to 10%. Patient will receive a letter notifying them of these results.
== END 2022-08-01 02:30 ==
LOC: DI 02:10
PROVIDERS: PCP Nurse Practitioner Family; Visit Provider Nurse Practitioner Family
DX: Z12.31 Encounter for screening mammogram for malignant neoplasm of breast (principal)
CPT/HCPCS: 77063; 77067

== ENCOUNTER 2022-08-04 14:46 | Outpatient (CLI) | payer MEDICARE, BC, SELFPAY ==
--- NOTE | 2022-08-04 10:15 | DI.US_ITS ---
APPROVED REPORT EXAM: Comprehensive 2D, Doppler, and color-flow Echocardiogram Patient Location: Out-Patient Motor Man: Jeovany Kapoor RDMS, RVT Indications: LAE on EKG and SOB on exertion, cardiomegaly Other Information Study Quality: Adequate Conclusion Normal left ventricular wall thickness and chamber size. Ejection fraction is 60%. Wall motion is n ormal Normal right ventricular size and systolic function Both atria are normal in size Aortic valve is trileaflet, mildly thickened, without stenosis or regurgitation Normal mitral valve with mild regurgitation Normal tricuspid valve with mild regurgitation. Estimated right ventricular systolic pressure is 25 mmHg Wall motion Left Ventricle The left ventricle is normal size. The left ventricular systolic function is normal. The left ventric ular ejection fraction is within the normal range. There is normal left ventricular wall thickness. T here is normal LV segmental wall motion. There is no ventricular septal defect visualized. LVEF is 60 %. Right Ventricle The right ventricle is normal size. The right ventricular systolic function is normal. The RVSP is 25 .5 mmHg. Atria The left atrium size is normal. The right atrium size is normal. The interatrial septum is intact wit h no evidence for an atrial septal defect. Aortic Valve The aortic valve is mildly thickened. Aortic valve is trileaflet. There is no aortic valvular stenosi s. No aortic regurgitation is present. Mitral Valve The mitral valve is normal in structure. No evidence of mitral valve stenosis. Mild mitral regurgitat ion. Tricuspid Valve The tricuspid valve is normal in structure. There is no tricuspid valve stenosis. Mild tricuspid regu rgitation. Pulmonic Valve The pulmonary valve is normal in structure. There is no pulmonic valvular stenosis. Mild pulmonic r egurgitation. Great Vessels The aortic root is normal in size. The ascending aorta is normal in size. Aortic arch is normal in ca liber. IVC is normal in size and collapses >50% with inspiration. Pericardium There is no pericardial effusion. 2D Dimensions IVSD d PLAX 0.55 cm F: 0.6-1.0 LV Vol A2C d MOD 71.4 mL LVPW d PLAX 0.57 cm F: 0.6 - 1.0 LV Vol A4C d MOD 64.2 mL LVID d PLAX 4.18 cm F: 3.8 - 5.2 LA vol/ BSA A4C s A-L 28.3 mL/m2 LVDs 2.85 cm F: 2.2 - 3.5 LA Area A4C s MOD 15.74 cm2 Ao Root d 2.81 cm F: 2.7 - 3.3 LV EF A4C MOD 59.1 % Ao Asc Diam d 2.83 cm F: 2.3 - 3.1 LV EF A2C MOD 59.9 % LV EF Teichholz 59.9 % LV EF Biplane MOD 59.0 % LVEF (Navarro's) 59.03 % F: 54 - 74 SV 41.14 mL LV Volume 57.14 mL F: 46 - 106 SV Index 26.32 mL/m2 LV Volume Index 36.62 mL/m2 F: 29 - 61 LV Vol Biplane MOD 69.7 mL FS 31.50 % M-Mode TAPSE 2.29 cm (M/F) >1.7 LV Diastology E/A Ratio 0.9 MV E Vmax 0.78 (0.4-1.3 m/s) MV A Vmax 0.90 (0.4-1.3 m/s) MV E/A Ratio 0.82 Aortic Valve LVOT Area 2.88 cm2 AoV Area Vmax 2.04 cm2 LVOT Vmax 0.72 m/s AoV Area/ BSA (Vmax) 1.31 cm2/m2 LVOT Mean Kofi. 0.52 m/s ROBERTO Mean Kofi. 1.81 cm2 LVOT Peak Grad 2.1 mmHg ROBERTO Mean Kofi. Index 1.16 cm2/m2 LVOT Mean Grad 1.2 mmHg LVOT VTI 0.201 m LVOT Diam s 1.90 cm AoV Vmax 1.02 m/s Velocity Ratio 0.71 AoV Mean Kofi. 0.82 m/s AoV Peak Grad 4.1 mmHg LVOT SV 58.10 mL AoV Mean Grad 2.9 mmHg AoV VTI 0.249 m AoV Area VTI 2.33 cm2 AoV Area/ BSA (VTI) 1.49 cm/m2 Mitral Valve MV DT 186 (160-240 msec) MV PHT 54 msec MV Area PHT 4.07 cm2 MV VTI 0.348 m MV Area VTI 1.67 (4.0-6.0 cm2) Pulmonary Valve PV Vmax 0.64 (0.5-1.5 m/s) RVOT Peak Gr. 1.13 mmHg PV Peak Grad 1.6 mmHg RVOT Mean Gr. 0.65 mmHg PV Mean Grad 1.1 mmHg RVOT VTI 0.134 m PV VTI 0.138 m RVOT Vmax 0.53 m/s Tricuspid Valve TR Peak Grad 22.4 mmHg TR Vmax 2.37 m/s RA Pressure 3.00 mmHg RVSP (TR) 25.5 mmHg
== END 2022-08-04 15:06 ==
LOC: DI 14:55
PROVIDERS: PCP Nurse Practitioner Family; Visit Provider Nurse Practitioner Family
DX: I51.7 Cardiomegaly (principal); R06.02 Shortness of breath
CPT/HCPCS: 93306

== ENCOUNTER 2022-08-18 01:35 | Outpatient (CLI) | payer MEDICARE, BC, SELFPAY ==
--- NOTE | 2022-08-18 08:00 | DI.MRI_ITS ---
Exam(s) MR CERVICAL SPINE WO EXAM: MR CERVICAL SPINE WO CLINICAL HISTORY: no improvement with PT, NECK PAIN RT SIDE, CERVICALGIA, M54.2 TECHNIQUE: Multiplanar multisequence MRI of the cervical spine was performed without intravenous con trast. COMPARISON: CR XR CERVICAL SPINE COMP 4-5V from 06/13/2022 FINDINGS: BONES: Vertebral body heights are maintained. Alignment is normal. Bone marrow signal intensity is wi thin normal limits. CERVICAL CORD: Craniovertebral junction is unremarkable. The cervical cord is normal size and signal intensity. SOFT TISSUES: Unremarkable. C2-3: No disc herniation or bulge is identified. No evidence of neural foraminal narrowing. No signi ficant central canal stenosis C3-4: Asymmetric endplate osteophyte, eccentric toward the right , causing right neural foraminal saloni rowing. No significant central canal stenosis C4-5: No disc herniation or bulge is identified. No evidence of neural foraminal narrowing. No signif icant central canal stenosis C5-6: Moderate loss of disc height and small endplate osteophytes. Bilateral facet degenerative ventura ges. Bilateral neural foraminal narrowing, right greater than left. No significant central canal st enosis C6-7: No disc herniation or bulge is identified. No significant neural foraminal narrowing. No signif icant central canal stenosis C7-T1: No disc herniation or bulge is identified. No evidence of neural foraminal narrowing. No signi ficant central canal stenosis IMPRESSION: Right-sided endplate osteophytes at C3-4 cause right neural foraminal narrowing. Endplate osteophytes at C5-6 cause bilateral neural foraminal encroachment, right greater than left. No focal disc herniation at any level. DATA REPOSITORY:
== END 2022-08-18 01:55 ==
LOC: DI 01:35
PROVIDERS: PCP Nurse Practitioner Family; Visit Provider Nurse Practitioner Family
DX: M25.78 Osteophyte, vertebrae (principal); M54.2 Cervicalgia
CPT/HCPCS: 72141

== ENCOUNTER 2022-09-01 03:18 | Outpatient (CLI) | payer MEDICARE, BC, SELFPAY ==
[2022-09-01 12:47] LABS: ALT 28 U/L (14-59); AST 23 U/L (15-37); Alkaline Phosphatase 62 U/L (46-116); Anion Gap 5.1 mmol/L (3-11); BUN 18 mg/dL (7-18); Bilirubin, Total 0.5 mg/dL (0.2-1.0); CO2 31.9 mmol/L (21.0-32.0); CREATININE 0.8 mg/dL (0.55-1.02); Calcium 9.1 mg/dL (8.5-10.1); Calculated LDL 122 mg/dL (<100); Chloride 103 mmol/L (98-107); Cholesterol 224 mg/dL (<200); Estimated GFR 76.79 (mL/min/1.73m2); Glucose 93 mg/dL (74-106); HDL Cholesterol 96 mg/dL (40-60); Potassium 4.6 mmol/L (3.5-5.1); Sodium 140 mmol/L (136-145); TSH (W/Ref FT4) 2.98 uIU/mL (0.36-3.74); Total Protein 7.3 g/dL (6.4-8.2); Triglyceride 34 mg/dL (<150)
== END 2022-09-01 03:19 | disposition home or self-care (01) ==
LOC: LOS 03:18
PROVIDERS: PCP Nurse Practitioner Family; Visit Provider Nurse Practitioner Family
DX: E03.9 Hypothyroidism, unspecified (principal); E78.5 Hyperlipidemia, unspecified
CPT/HCPCS: 36415; 80053; 80061; 84443

== ENCOUNTER 2022-10-19 16:29 | Outpatient (REF) | payer MEDICARE, BC, SELFPAY | END 2022-10-19 16:30 | disposition home or self-care (01) | LOC: LBN 16:29 | PROVIDERS: PCP Nurse Practitioner Family; Visit Provider Nurse Practitioner Family | DX: L02.31 Cutaneous abscess of buttock; L98.8 Other specified disorders of the skin and subcutaneous tissue | CPT/HCPCS: 87070; 87205 ==

== ENCOUNTER → 2022-11-28 18:53 | Outpatient (CLI) | payer MEDICARE, BC, SELFPAY ==
--- NOTE | 2022-11-28 13:00 | DI.RAD_ITS ---
Exam(s) XR KNEE LT 3V AP,LAT,BLAZE EXAM: XR KNEE LT 3V AP,LAT,BLAZE CLINICAL HISTORY: Lt knee pain and swelling, M25.562, M25.462. TECHNIQUE: 2D digital imaging was performed. COMPARISON: No exams were available for comparison FINDINGS: 3 views No evidence of fracture or joint effusion. No joint space narrowing. No osseous lesions. On the lateral view there is relatively focal soft tissue swelling anterior to the lower 3rd of the p atella and upper half of the patellar ligament. This appears to be related to a subcutaneous finding at this level. There is no radiopaque foreign body nor calcification in the soft tissue swelling. IMPRESSION: No significant osseous findings in the knee. Anterior soft tissue addition density as described above. DATA REPOSITORY: RADIATION DOSE DELIVERED:
== END ==
PROVIDERS: PCP Nurse Practitioner Family; Visit Provider Nurse Practitioner Family
DX: M25.462 Effusion, left knee (principal); M25.562 Pain in left knee
CPT/HCPCS: 73562

== ENCOUNTER → 2022-12-23 00:17 | Outpatient (CLI) | payer MEDICARE, BC, SELFPAY ==
--- NOTE | 2022-12-23 08:00 | DI.MRI_ITS ---
Exam(s) MR LOWER JOINT LT WO EXAM: MR LOWER JOINT LT WO CLINICAL HISTORY: no improvement with PT,pain, swelling, lt knee, m25.562,. TECHNIQUE: Multiplanar multisequence MRI was performed. COMPARISON: CR,XR XR CHEST 2V PA LATERAL from 07/01/2022 CR XR KNEE LT 3V AP,LAT,BLAZE from 11/28/2022 FINDINGS: BONES: There is no fracture or contusion pattern. There are few tiny degenerative subchondral cysts , at the proximal tibia at the tibial fibular joint and near the tibial spines. Mild edema in the me dial femoral condyle and near the tibial spines. JOINTS: Minimal joint effusion is present. Articular cartilage: Patellofemoral joint: Articular cartilage is unremarkable. Medial femoral tibial joint: Articular cartilage is unremarkable. Lateral femoral tibial joint: Articular cartilage is unremarkable. TENDONS: Extensor mechanism: Unremarkable. Medial retinaculum: Unremarkable. Lateral retinaculum: Unremarkable. Popliteus: Unremarkable. MUSCLES: Unremarkable. MENISCI: The medial meniscus is unremarkable. The lateral meniscus is unremarkable. SOFT TISSUES: Mild anterior soft tissue edema. Localized fluid collection anterior to the patellar t endon measuring 2.9 transverse by 1.0 AP by 3.6 cm in length. LIGAMENTS: Anterior Cruciate: Unremarkable. Posterior Cruciate: Unremarkable. Medial Collateral:Unremarkable. Lateral Collateral: Unremarkable. OTHER: IMPRESSION: Fluid collection anterior to patellar tendon consistent with prepatellar bursitis. Patellar tendon a nd quadriceps tendons appear normal. No meniscal tear or ligament tear. DATA REPOSITORY:
== END ==
PROVIDERS: PCP Nurse Practitioner Family; Visit Provider Nurse Practitioner Family
DX: M25.562 Pain in left knee; M70.42 Prepatellar bursitis, left knee
CPT/HCPCS: 73721

== ENCOUNTER → 2022-12-26 10:37 | Outpatient (BNVA) | payer MEDICARE, BC, SELFPAY | PROVIDERS: PCP Nurse Practitioner Family; Referring Provider Nurse Practitioner Family | DX: M70.42 Prepatellar bursitis, left knee (principal) | CPT/HCPCS: 99213 ==

== ENCOUNTER → 2023-06-30 15:14 | Outpatient (CLI) | payer MEDICARE, BC, SELFPAY ==
--- NOTE | 2023-06-30 15:17 | DI.RAD_ITS ---
Exam(s) XR CHEST 2V PA LATERAL EXAM: XR CHEST 2V PA LATERAL CLINICAL HISTORY: post viral cough and fever x2 months R05.9. TECHNIQUE: 2D digital imaging was performed. COMPARISON: CR,XR XR CHEST 2V PA LATERAL from 07/01/2022 FINDINGS: 2 views: Heart size is normal. The mediastinum is not widened. Lungs are clear. No infiltrates nor pleural effusions. IMPRESSION: No acute pulmonary findings. DATA REPOSITORY: RADIATION DOSE DELIVERED:
== END ==
PROVIDERS: PCP Nurse Practitioner Family; Visit Provider Nurse Practitioner Family
DX: R05.9 Cough, unspecified (principal)
CPT/HCPCS: 71046

== ENCOUNTER 2023-07-13 05:21 | Outpatient (CLI) | payer MEDICARE, BC, SELFPAY ==
[2023-07-13 13:13] LABS: ALT 30 U/L (14-59); AST 19 U/L (15-37); Albumin 3.9 g/dL (3.4-5.0); Alkaline Phosphatase 62 U/L (46-116); Anion Gap 6.8 mmol/L (3-11); BUN 23 mg/dL (7-18); Bilirubin, Total 0.4 mg/dL (0.2-1.0); CO2 31.2 mmol/L (21.0-32.0); CREATININE 0.8 mg/dL (0.55-1.02); Calcium 9.2 mg/dL (8.5-10.1); Calculated LDL 106 mg/dL (<100); Chloride 103 mmol/L (98-107); Cholesterol 206 mg/dL (<200); Estimated GFR 76.79 (mL/min/1.73m2); Glucose 88 mg/dL (74-106); HDL Cholesterol 94 mg/dL (40-60); Potassium 4.7 mmol/L (3.5-5.1); Sodium 141 mmol/L (136-145); Total Protein 6.9 g/dL (6.4-8.2); Triglyceride 32 mg/dL (<150)
== END 2023-07-13 05:22 | disposition home or self-care (01) ==
LOC: LOS 05:23
PROVIDERS: PCP Nurse Practitioner Family; Visit Provider Nurse Practitioner Family
DX: E78.5 Hyperlipidemia, unspecified (principal)
CPT/HCPCS: 36415; 80053; 80061

== ENCOUNTER 2023-07-27 04:28 | Outpatient (CLI) | payer MEDICARE, BC, SELFPAY ==
[2023-07-27 12:49] LABS: TSH (W/Ref FT4) 6.38 uIU/mL (0.36-3.74)
[2023-07-27 13:08] LABS: FREE T4 0.62 ng/dL (0.76-1.46)
== END 2023-07-27 04:29 | disposition home or self-care (01) ==
LOC: LOS 04:28
PROVIDERS: PCP Nurse Practitioner Family; Visit Provider Nurse Practitioner Family
DX: E03.9 Hypothyroidism, unspecified (principal)
CPT/HCPCS: 36415; 84439; 84443

== ENCOUNTER → 2023-08-10 00:03 | Outpatient (CLI) | payer MEDICARE, BC, SELFPAY ==
--- NOTE | 2023-08-10 08:52 | DI.MAMMO_ITS ---
Exam(s) MAMMO SCREENING EXAM: MAMMO SCREENING CLINICAL HISTORY: screening Z12.39 TECHNIQUE: Bilateral full field digital CC and MLO mammographic images were obtained with 3D tomosyn thesis and utilizing computer aided detection (CAD). COMPARISON: Available for comparison. FINDINGS: Masses/Architectural Distortion: There is new area of nodularity in the posterior right breast on the MLO view 5 cm directly posterior to the nipple. It measures approximately 7 mm in size. Microcalcifications: No suspicious pleomorphic-type are seen. Skin Thickening/Nipple Retraction: None. IMPRESSION: 1. New area of nodularity in the posterior right breast on the MLO view. 2. A spot compression views requested for further evaluation. A complete right breast ultrasound aleksandra uld be obtained at the time. BI-RADS Category 0 - Assessment Incomplete: Need additional imaging evaluation Breast Density - Category C - Heterogeneously dense Breast density category C or D implies that the patient has dense breast tissue. Dense breast tissue is very common and is not abnormal but dense breast tissue can make it harder to find cancer on a ma mmogram. Also, dense breast tissue may increase their breast cancer risk. This information about the result of the mammogram report was provided to the patient to raise their awareness. Use this report when you speak with the patient about their risks for breast cancer, which includes their family hist ory. At that time, you may recommend for more screening tests (Ultrasound or MRI) as they might be us eful based on their risk. A negative radiographic report should not delay biopsy if a dominant or clinically suspicious mass is present. Up to ten percent of cancers are not identified on mammography. A negative report may reinforce clinical impression. Adenosis and dense breasts may obscure an underlying neoplasm. False positive reports average 6 to 10%. Patient will receive a letter notifying them of these results.
--- NOTE | 2023-08-10 08:52 | DI.DEXA_ITS ---
Exam(s) XR DEXA BONE DENSITY W/WO KENDRA EXAM: XR DEXA BONE DENSITY W/WO KENDRA CLINICAL HISTORY: monitoring Z78.0 MENOPAUSAL STATE TECHNIQUE: COMPARISON: DX DEXA BONE DENSITY WITH KENDRA from 06/27/2017 FINDINGS: Lateral Spine Image: Unremarkable. No new compression deformities identified. Left hip: Total T-Score: -2.6. This compares to -2.8 on the prior examination. Total Z-Score: -0.8 T- and Z-scores: Findings are consistent with osteoporosis. Lumbar Spine: Total T-Score: -1.8. This compares to -2.2 on the prior examination. Total Z-Score: 0.6 T- and Z-scores: Findings are consistent with osteopenia. No evidence of osteoporosis. Right forearm: Total T-score:-2.9. This compares to minus 2.4 on the prior examination. Total Z-score:-0.4. T and Z-scores: Findings are consistent with osteoporosis. IMPRESSION: Osteoporosis in the left hip and right forearm.
== END ==
PROVIDERS: PCP Nurse Practitioner Family; Visit Provider Nurse Practitioner Family
DX: Z12.31 Encounter for screening mammogram for malignant neoplasm of breast (principal); Z13.820 Encounter for screening for osteoporosis; M81.0 Age-related osteoporosis without current pathological fracture
CPT/HCPCS: 77063; 77067; 77080

== ENCOUNTER → 2023-08-14 04:50 | Outpatient (CLI) | payer MEDICARE, BC, SELFPAY ==
--- NOTE | 2023-08-14 | DI.US_ITS ---
Exam(s) MG MAMMO SCREEN CALL BACK UNI US BREAST RT COMPLETE EXAM: MG MAMMO SCREEN CALL BACK UNI CLINICAL HISTORY: F/U MAMMO, NEW RT BREAST NODULARITY,R92.8. TECHNIQUE: mediolateral oblique spot compression digital Mammography views of the rightbreast with Tomosynthesis and right breast ultrasound. COMPARISON: 10 August 2023 and prior exams back to 2013 FINDINGS: Mammography/Tomosynthesis: Masses: None seen. Architectural Distortion: None seen. Microcalcifictions: No suspicious pleomorphic-type are seen. Skin Thickening/Nipple Retraction: None. Right breast US: Echotexture: Normal appearance of the glandular tissue. Shadowing: No suspicious foci. Cyst: None. Solid lesions: None seen. Ductal dilation: None. IMPRESSION: 1. No evidence of malignancy is noted. 2. Unless there is more urgent need, follow-up screening mammography is recommended, as per [employer] guidelines. 3. The findings were discussed with the patient on the date of the examination. BI-RADS Category 1 - Negative Breast Density - Category C - Heterogeneously dense A mammogram that demonstrates density of C or D indicates the patient's breast tissue is dense. Dense breast tissue is very common and is not abnormal, but dense breast tissue can make it harder to find cancer on a mammogram. Also, dense breast tissue may increase their breast cancer risk. This informa tion about the result of the mammogram report was provided to the patient to raise their awareness. U se this report when you speak with the patient about their risks for breast cancer, which includes th eir family history. At that time, you may recommend for more screening tests (Ultrasound or MRI) as t hey might be useful based on their risk. A negative radiographic report should not delay biopsy if a dominant or clinically suspicious mass is present. Up to ten percent of cancers are not identified on mammography. A negative report may reinforce clinical impression. Adenosis and dense breasts may obscure an underlying neoplasm. False positive reports average 6 to 10%. Patient will receive a letter notifying them of these results.
== END ==
PROVIDERS: PCP Nurse Practitioner Family; Visit Provider Nurse Practitioner Family
DX: R92.8 Other abnormal and inconclusive findings on diagnostic imaging of breast (principal); Z12.31 Encounter for screening mammogram for malignant neoplasm of breast
CPT/HCPCS: 76642; 77063; 77067

== ENCOUNTER 2023-09-18 01:56 | Outpatient (CLI) | payer MEDICARE, BC, SELFPAY ==
[2023-09-18 12:58] LABS: TSH (W/Ref FT4) 2.22 uIU/mL (0.36-3.74)
== END 2023-09-18 01:57 | disposition home or self-care (01) ==
LOC: LOS 01:56
PROVIDERS: PCP Nurse Practitioner Family; Visit Provider Nurse Practitioner Family
DX: E03.9 Hypothyroidism, unspecified (principal)
CPT/HCPCS: 36415; 84443

== ENCOUNTER 2024-07-10 03:25 | Outpatient (CLI) | payer MEDICARE, BC, SELFPAY ==
[2024-07-10 12:31] LABS: ALT 29 U/L (14-59); AST 24 U/L (15-37); Albumin 4.3 g/dL (3.4-5.0); Alkaline Phosphatase 66 U/L (46-116); Anion Gap 6.1 mmol/L (3-11); BUN 20 mg/dL (7-18); Bilirubin, Total 0.6 mg/dL (0.2-1.0); CO2 30.9 mmol/L (21.0-32.0); CREATININE 0.8 mg/dL (0.55-1.02); Calcium 9.4 mg/dL (8.5-10.1); Calculated LDL 114 mg/dL (<100); Chloride 101 mmol/L (98-107); Cholesterol 223 mg/dL (<200); Estimated GFR 76.31 (mL/min/1.73m2); Glucose 85 mg/dL (74-106); HDL Cholesterol 102 mg/dL (>or=50); Sodium 138 mmol/L (136-145); TSH (W/Ref FT4) 2.61 uIU/mL (0.36-3.74); Total Protein 7.2 g/dL (6.4-8.2); Triglyceride 35 mg/dL (<150)
== END 2024-07-10 03:26 | disposition home or self-care (01) ==
LOC: LOS 03:25
PROVIDERS: Visit Provider Nurse Practitioner Family
DX: E03.9 Hypothyroidism, unspecified (principal); E78.5 Hyperlipidemia, unspecified
CPT/HCPCS: 36415; 80053; 80061; 84443